=== PATIENT | male | born 1955 | race Caucasian/White ===

== ENCOUNTER 2020-06-19 15:19 | Emergency (ER) | payer BC, OTHER ==
[2020-06-19] MEDS ORDERED: Diphtheria,Pertussis(Acell),Tetanus Vaccine 0.5 ML Syringe IM ONE (15:40)
[2020-06-19] MEDS ORDERED: Bacitracin Oint 1 GM U/D Packet TOP ONE (15:40)
--- NOTE | 2020-06-19 15:40 | EDM.PDOC ---
ED HPI GENERAL MEDICAL PROBLEM - General Chief Complaint: Laceration Stated Complaint: FOREHEAD INJURY Time Seen by Provider: 06/19/20 15:37 Source of Information: Reports: Patient History Limitations: Reports: No Limitations - History of Present Illness INITIAL COMMENTS - FREE TEXT/NARRATIVE: 64-year-old male who states that he was putting up a metal ladder after doing some work and the ladder fell over and struck him on the top of his head and also on the bridge of his nose. This occurred approximately 3 PM today. There was no loss of consciousness. He has had no weakness or dizziness. He has no headache but he does have pain in the area of the cut that he rates as about a 7-8/10. It is a sharp and stinging type pain. There was some bleeding but it has been controlled with direct pressure. He has no neck pain. He does have some back pain but that is from previous injury and is not different than he has had in the past. He has had no arm or leg weakness. The pain is worse with palpation. There are no other associated signs or symptoms. There are no other modifying factors. 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 Surgical history as detailed below.) - Past Surgical History GI Surgical History: Reports: Appendectomy Social & Family History - Tobacco Use Tobacco Use Status *Q: Unknown Ever Used Tobacco (Nonsmoker.) - Alcohol Use Alcohol Use History: No - Living Situation & Occupation Occupation: Employed (He works as a [employer].) ED ROS GENERAL - Review of Systems Review Of Systems: See Below Constitutional: Reports: No Symptoms HEENT: Reports: Other (Nose abrasion. Scalp laceration.). Denies: Nosebleed Respiratory: Reports: No Symptoms Cardiovascular: Reports: No Symptoms Endocrine: Reports: No Symptoms GI/Abdominal: Reports: No Symptoms : Reports: No Symptoms Musculoskeletal: Reports: Back Pain (But this was present prior to the accident.). Denies: Neck Pain Skin: Reports: Wound (Laceration to the frontal scalp and abrasion to the bridge of the nose.) Neurological: Reports: No Symptoms Hematologic/Lymphatic: Reports: No Symptoms Immunologic: Reports: Other (Last tetanus immunization was greater than 5 years ago. He will be given one today.) ED EXAM, SKIN/RASH Exam: See Below Exam Limited By: No Limitations General Appearance: Alert, WD/WN, Mild Distress, Other (Nontoxic.) Eye Exam: Bilateral Eye: EOMI, Normal Inspection, PERRL Ears: Normal External Exam, Hearing Grossly Normal Nose: Normal Mucosa, No Blood, Nasal Swelling, Other (No crepitus.) Throat/Mouth: Normal Inspection, Normal Lips, Normal Oropharynx, Normal Voice, No Airway Compromise Head: Normocephalic, Other (Frontal scalp laceration that is 4 centimeters in length.) Neck: Normal Inspection, Supple, Non-Tender, Full Range of Motion Respiratory/Chest: No Respiratory Distress, Lungs Clear, Normal Breath Sounds, No Accessory Muscle Use, Chest Non-Tender Cardiovascular: Normal Peripheral Pulses, Regular Rate, Rhythm, No Murmur Peripheral Pulses: 2+: Radial (L), Radial (R) GI/Abdominal: Normal Bowel Sounds, Soft, Non-Tender Back Exam: Full Range of Motion, Paraspinal Tenderness. No: Vertebral Tenderness Extremities: Normal Inspection, Normal Range of Motion, Non-Tender, No Pedal Edema, Normal Capillary Refill Neurological: Alert, Oriented, CN II-XII Intact, Normal Cognition, No Motor/Sensory Deficits Skin: Warm, Dry, Normal Color, No Rash, Wound/Incision (As above.) Location, Skin: Head Characteristics: Linear ED SKIN PROCEDURES - Laceration/Wound Repair Left Anterior Head Appearance: Subcutaneous, Mildly Contaminated Distal NVT: Neuro & Vascular Intact Anesthetic Type: Local Local Anesthesia - Lidocaine (Xylocaine): 1% Plain Local Anesthetic Volume: 3cc (There was good anesthesia and no complications.) Skin Prep: Saline Saline Irrigation (cc's): 300 Exploration/Debridement/Repair: Wound Explored, No Foreign Material Found, Other (No crepitus. No depression.) Closed with: [place] Lac/Wound length In cm: 4 # of Sutures: 5 (5 gwen placed) Sterile Dressing Applied: Nurse Tetanus Status Addressed: Yes (Patient was given Tdap immunization.) Complications: No Course - Vital Signs Last Recorded V/S: Last Vital Signs Temp 36.4 C 06/19/20 15:19 Pulse 56 L 06/19/20 15:19 Resp 18 06/19/20 15:19 BP 137/71 06/19/20 15:19 Pulse Ox 96 06/19/20 15:19 - Orders/Labs/Meds Orders: Active Orders 24 hr Category Date Time Status Vaccines to be Administered [RC] PER UNIT ROUTINE Care 06/19/20 15:41 Active Meds: Medications Discontinued Medications Generic Name Dose Route Start Last Admin Trade Name Freq PRN Reason Stop Dose Admin Bacitracin 1 dose 06/19/20 15:40 06/19/20 15:54 Bacitracin Oint 1 Gm TOP 06/19/20 15:41 1 dose ONETIME ONE Administration Diphtheria/Tetanus/Acell Pertussis 0.5 ml 06/19/20 15:40 06/19/20 15:54 Boostrix IM 06/19/20 15:41 0.5 ml .ONCE ONE Administration - Re-Assessments/Exams Free Text/Narrative Re-Assessment/Exam: 06/19/20 15:50: Patient is awake, alert and neurologically intact. No concerning signs or symptoms. The wound was cleaned and repaired with gwen. Patient tolerated this well with no apparent complications. Wound care instructions were given. Staple removal in 7 days. Precautions and reasons for return to the e mergency department were discussed with the patient while he was in the emergency department and were detailed in his discharge instructions. Patient was given ibuprofen 800 mg by mouth for his pain. Departure - Departure Time of Disposition: 16:00 Disposition: Home, Self-Care 01 Clinical Impression: Head contusion Qualifiers: Encounter type: initial encounter Contusion of head detail: unspecified part of head Qualified Code(s): S00.93XA - Contusion of unspecified part of head, initial encounter Scalp laceration Qualifiers: Encounter type: initial encounter Qualified Code(s): S01.01XA - Laceration without foreign body of scalp, initial encounter Nasal abrasion Qualifiers: Encounter type: initial encounter Qualified Code(s): S00.31XA - Abrasion of nose, initial encounter - Discharge Information Instructions: Facial or Scalp Contusion, [id number], Head Injury, Adult, [id number], Sutures, [place], or Adhesive Wound Closure, [id number] Referrals: PCP,None [Primary Care Provider] - Forms: ED Department Discharge Additional Instructions: Do not get the stapled wound wet for 3 days. After 3 days, you may get the st aple wound wet but do not immerse the stapled wound in water until the Abeles are out. Staple removal in 7 days. You were given a Tdap immunization today to bring your tetanus immunization status up-to-date. You can take ibuprofen and Tylenol as needed for pain. Back to the emergency department for marked increase in pain, redness, severe headache, weakness or any other concerning sign or symptom. Sepsis Event Note (ED) - Evaluation Sepsis Screening Result: No Definite Risk - Focused Exam Vital Signs: Vital Signs Temp Pulse Resp BP Pulse Ox 06/19/20 15:19 36.4 C 56 L 18 137/71 96 - My Orders Last 24 Hours: My Active Orders 06/19/20 15:41 Vaccines to be Administered [RC] PER UNIT ROUTINE - Assessment/Plan Last 24 Hours: My Active Orders 06/19/20 15:41 Vaccines to be Administered [RC] PER UNIT ROUTINE
[2020-06-19] MEDS ORDERED: Ibuprofen 800 MG Tab PO ONE (16:02)
== END 2020-06-19 16:18 | disposition home or self-care (01) ==
LOC: FB.ED 15:19
DX: S01.01XA Laceration without foreign body of scalp, initial encounter (principal); S00.31XA Abrasion of nose, initial encounter; Z23 Encounter for immunization; W20.8XXA Other cause of strike by thrown, projected or falling object, initial encounter; Y92.008 Other place in unspecified non-institutional (private) residence as the place of occurrence of the external cause
CPT/HCPCS: 12002; 90471; 90715; 99282; A9270; J2001

== ENCOUNTER 2024-11-19 11:40 | Observation (INO) | payer MEDICARE, OTHER ==
[2024-11-19] MEDS: Sodium Chloride 0.9% 1,000 ML IV ONE (12:08)
[2024-11-19 12:36] LABS: BASOPHILS PERCENT AUTO 0.4 % (0.3-3.8); BLOOD UREA NITROGEN,BUN 16 mg/dL (7-18); BUN/CREATININE RATIO 12.3 (9-20); CALCIUM 8.8 mg/dL (8.6-10.2); CARBON DIOXIDE,CO2 27 mmol/L (21-32); CHLORIDE,CL 104 mmol/L (100-110); CREATININE 1.3 mg/dL (0.70-1.30); EOSINOPHILS ABSOLUTE AUTO 0.1 x10-3/uL (0.0-0.6); EOSINOPHILS PERCENT AUTO 0.5 % (0.1-6.8); ESTIMATED GFR 59 mL/min (>60); GLUCOSE RANDOM 108 mg/dL (80-116); HEMATOCRIT 46.3 % (38.3-50.1); HEMOGLOBIN 15.5 g/dL (12.9-17.7); LYMPHOCYTES ABSOLUTE AUTO 1.5 x10-3/uL (0.5-4.5); LYMPHOCYTES PERCENT AUTO 13.5 % (15.8-45.3); MEAN CORPUSCULAR HGB CONC 33.5 g/dL (28.7-35.3); MEAN CORPUSCULAR VOLUME 89.6 fL (80.8-98.7); MEAN PLATELET VOLUME 8.3 fL (6.7-11.0); MONOCYTES ABSOLUTE AUTO 1.2 x10-3/uL (0.0-1.2); MONOCYTES PERCENT AUTO 10.4 % (5.5-15.2); NEUTROPHILS ABSOLUTE AUTO 8.5 x10-3/uL (1.7-6.9); NEUTROPHILS PERCENT AUTO 75.2 % (40.3-71.8); PLATELET COUNT,PLT 171 x10(3)uL (117-477); POTASSIUM,K 4.1 mmol/L (3.5-5.3); RED BLOOD CELL COUNT 5.17 x10(6)uL (3.90-5.90); RED CELL DISTRIBUTION WIDTH 14.8 % (12.4-15.0); SODIUM,NA 141 mmol/L (135-145); WHITE BLOOD CELL COUNT,WBC 11.3 x10-3/uL (3.2-10.1)
[2024-11-19 12:42] LABS: A/G RATIO 0.9; ALANINE AMINOTRANSFERASE,ALT 15 U/L (12-36); ALBUMIN 3.3 g/dL (3.2-4.6); ALKALINE PHOSPHATASE 67 IU/L (56-112); ASPARTATE AMNIOTRANSFERASE,AST 10 IU/L (5-25); BILIRUBIN TOTAL 1.4 mg/dL (0.1-1.3); PROTEIN TOTAL,TP 7.1 g/dL (6.0-8.0)
[2024-11-19 12:52] LABS: TROPONIN I 5.9 pg/mL (4.0-60.3); TSH ULTRASENSITIVE 0.02 IU/mL (0.36-3.74)
[2024-11-19 12:54] LABS: C-REACTIVE PROTEIN 9.33 mg/dL (<0.50)
[2024-11-19 12:59] LABS: INFLUENZA A NAA NEGATIVE (NEGATIVE); INFLUENZA B NAA NEGATIVE (NEGATIVE); RESPIRATORY SYNCYTIAL VIR NAA NEGATIVE (NEGATIVE)
[2024-11-19 13:01] LABS: CORONAVIRUS COVID-19 NAA NEGATIVE (NEGATIVE)
[2024-11-19] MEDS ORDERED: Ondansetron 4 MG/2 ML SDV IV PRN (14:49)
[2024-11-19 14:56] LABS: BILIRUBIN,URINE NEGATIVE (NEGATIVE); GLUCOSE,URINE NORMAL (NORMAL); KETONES,URINE NEGATIVE (NEGATIVE); LEUKOCYTE ESTERASE,URINE NEGATIVE (NEGATIVE); NITRITE,URINE NEGATIVE (NEGATIVE); OCCULT BLOOD,URINE NEGATIVE (NEGATIVE); PH,URINE 6.5 (5.0-6.5); PROTEIN,URINE NEGATIVE (NEGATIVE); UROBILINOGEN,URINE NORMAL (NEGATIVE)
[2024-11-19 14:58] LABS: APPEARANCE,URINE CLEAR (CLEAR); COLOR,URINE YELLOW (YELLOW)
[2024-11-19 14:59] LABS: BACTERIA,URINE OCCASIONAL (NS); SQUAMOUS EPITHELIAL CELLS,UR RARE (NS,R,O); WBC,URINE NOT SEEN (0-5)
[2024-11-19] MEDS: Azithromycin 500 MG Tab PO ONE (17:21)
[2024-11-19] MEDS: Enoxaparin 40 MG/0.4 ML Syringe SUBCUT SCH (17:21)
[2024-11-19] MEDS: Furosemide 20 MG/2 ML VIAL IVPUSH ONE (17:27)
[2024-11-19] MEDS: metFORMIN 500 MG Tab PO SCH (18:13)
[2024-11-19] MEDS: Famotidine 20 MG Tab PO SCH (20:20)
[2024-11-19] MEDS: Rosuvastatin 10 MG Tab PO SCH (20:20)
[2024-11-20] MEDS: Acetaminophen 325 MG Tab PO PRN (01:24)
[2024-11-20] MEDS: Levothyroxine 100 MCG Tab PO SCH (05:22)
[2024-11-20 06:40] LABS: BASOPHILS PERCENT AUTO 0.3 % (0.3-3.8); EOSINOPHILS ABSOLUTE AUTO 0.1 x10-3/uL (0.0-0.6); EOSINOPHILS PERCENT AUTO 1.4 % (0.1-6.8); HEMATOCRIT 45.2 % (38.3-50.1); HEMOGLOBIN 15.3 g/dL (12.9-17.7); LYMPHOCYTES ABSOLUTE AUTO 2.6 x10-3/uL (0.5-4.5); LYMPHOCYTES PERCENT AUTO 28.7 % (15.8-45.3); MEAN CORPUSCULAR HEMOGLOBIN 30.5 pg (27.0-33.3); MEAN CORPUSCULAR HGB CONC 33.8 g/dL (28.7-35.3); MEAN PLATELET VOLUME 8.4 fL (6.7-11.0); MONOCYTES PERCENT AUTO 10.9 % (5.5-15.2); NEUTROPHILS ABSOLUTE AUTO 5.2 x10-3/uL (1.7-6.9); NEUTROPHILS PERCENT AUTO 58.7 % (40.3-71.8); PLATELET COUNT,PLT 169 x10(3)uL (117-477); RED BLOOD CELL COUNT 5.02 x10(6)uL (3.90-5.90); RED CELL DISTRIBUTION WIDTH 14.3 % (12.4-15.0)
[2024-11-20 06:52] LABS: TROPONIN I 4.3 pg/mL (4.0-60.3)
[2024-11-20 06:54] LABS: C-REACTIVE PROTEIN 12.67 mg/dL (<0.50)
[2024-11-20] MEDS: Aspirin 81 MG Tab.EC PO SCH (08:37)
[2024-11-20] MEDS ORDERED: Azithromycin 250 MG Tab PO SCH (16:00)
[2024-11-20 21:27] LABS: PROCALCITONIN 0.1 ng/mL
[2024-11-25] MEDS ORDERED: TESTOSTERONE CYPIONATE 200 MG/ML IM SCH (15:14)
[2024-11-25] MEDS ORDERED: [UNRECOGNIZED DRUG - OTHER] IM SCH (15:14)
== END 2024-11-20 10:25 | disposition home or self-care (01) ==
LOC: FB.ED 11:40 → FB.MS 14:45
PROVIDERS: ADMIT Family Medicine; ATTEND Family Medicine
DX: R55 Syncope and collapse (principal); E11.9 Type 2 diabetes mellitus without complications; K21.9 Gastro-esophageal reflux disease without esophagitis; E03.9 Hypothyroidism, unspecified; E78.00 Pure hypercholesterolemia, unspecified; Z79.84 Long term (current) use of oral hypoglycemic drugs; Z79.890 Hormone replacement therapy; Z79.899 Other long term (current) drug therapy
CPT/HCPCS: 0241U; 36415; 71045; 80053; 81001; 83605; 83880; 84145; 84443; 84484; 85025; 85379; 86140; 93005; 94150; 96360; 96372; 99222; 99238; 99285; A9270; G0378; J1650; J7030